=== PATIENT | male | born 1950 | race Caucasian/White ===

== ENCOUNTER 2024-01-16 09:41 | Day surgery (SDC) | payer BC ==
[~2024-01-16] VITALS: Ht 175.3 cm; Wt 97.0 kg
[2024-01-16] VITALS (23 sets, daily range): BP systolic 96–143; BP diastolic 66–85; PULSE 67–90; RESP 11–25; TEMP 97; O2SAT 92–98
[2024-01-16] MEDS: cefazolin 2gm/D5W 100mL 100 ML IV ONE (05:30)
[2024-01-16] MEDS: DOCUMENT DATE & TIME OF BETA-BLOCKER PO ONE (05:30)
[2024-01-16] MEDS: tranexamic acid inj. 1,000 MG in normal saline IV soln 100ML IV ONE (05:30)
[~2024-01-16 09:41] MED LIST: ATEN50TA8 PO; DUTA0.5C36 PO; LEVO175T7 PO; LIDOcaine 1% W/epiNEPHrine 1:100,000 20ml vial ONE; LISI20TA28 PO; SIMV-42 PO; Thrombin (Bovine) 5,000 unit vial TP ONE; cocaine 4% topical solution 4ml bottle ONE; epiNEPHrine 1 mg/ml 30ml MDV ONE; fentaNYL/PF 50MCG/1 ML 2ML syringe ONE; oxymetazoline 15 ML nasal spray NS ONE
[2024-01-16] MEDS: famotidine 20mg tablet PO ONE (10:40)
[2024-01-16] MEDS: ringers solution, lacted 1,000 ML IV SCH (10:42)
[2024-01-16] MEDS: oxymetazoline 15 ML nasal spray NS ONE (12:03)
[2024-01-16] MEDS ORDERED: gelatin sponge, absorbable (Gelfoam 100) sponge TP ONE (12:46)
[2024-01-16] MEDS ORDERED: sevoflurane 250ml liquid IH ONE (12:48)
[2024-01-16] MEDS ORDERED: fentaNYL/PF 50MCG/1 ML 2ML syringe ONE (12:48)
[2024-01-16] MEDS: cocaine 4% topical solution 4ml bottle TP ONE (12:50)
[2024-01-16] MEDS ORDERED: labetalol 20mg/4ml (5mg/ml) syringe IV PRN (14:45)
[2024-01-16] MEDS ORDERED: morphine 4 MG/ML inj SYRINge IV PRN (14:45)
[2024-01-16] MEDS ORDERED: ringers solution, lacted 1,000 ML IV SCH (14:45)
[2024-01-16] MEDS ORDERED: morphine 2 MG/ML inj. syringe IV PRN (14:45)
[2024-01-16] MEDS ORDERED: meperidine/PF 25mg/ml syringe IV PRN ×2 (14:45)
[2024-01-16] MEDS ORDERED: enalaprilat dihydrate 2.5mg/2ml vial IV PRN (14:45)
[2024-01-16] MEDS ORDERED: proCHLORperazine 10 MG/2 ml inj IV PRN (14:45)
[2024-01-16] MEDS: meperidine/PF 25mg/ml syringe IV PRN (14:57)
[2024-01-16] MEDS: ondansetron/PF 4mg/2ml inj IV PRN (16:24)
[2024-01-16] MEDS: mupirocin 2% nasal ointment 1gm UD NS STA (18:04)
[2024-01-16] MEDS: salt irrigation nasal spray 45 ML SPRAY NS STA (18:07)
== END 2024-01-16 18:20 | disposition home or self-care (01) ==
LOC: PRE-OP 09:41
PROVIDERS: ATTEND Otolaryngology
DX: J34.2 Deviated nasal septum (principal); J34.3 Hypertrophy of nasal turbinates; J32.9 Chronic sinusitis, unspecified; I10 Essential (primary) hypertension; E11.9 Type 2 diabetes mellitus without complications; E03.9 Hypothyroidism, unspecified; E78.5 Hyperlipidemia, unspecified; I25.2 Old myocardial infarction; Z87.442 Personal history of urinary calculi; Z79.890 Hormone replacement therapy; Z79.899 Other long term (current) drug therapy; Z98.890 Other specified postprocedural states
CPT/HCPCS: 30140; 30520; 31256; 31259; 61782; 82948; 87070; 87075; 93005; A4314; A6402; C1726; J0171; J0690; J1100; J2175; J2371; J2405; J2704; J3010; J3490; J7030; J7050; J7120; Z7506; Z7508; Z7512; A4618; A4620; A6449; A7000